=== PATIENT | male | born 1965 | race Caucasian/White ===

== ENCOUNTER 2019-10-22 08:10 | Inpatient (IN) | payer MEDICARE, OTHER ==
[2019-10-22] VITALS (16 sets, daily range): BP systolic 119–185; BP diastolic 60–104
[~2019-10-22] VITALS: Ht 180.3 cm; Wt 103.1 kg
[2019-10-22] MEDS ORDERED: ATROPINE 0.5 MG/5 ML DISP.SYRINGE. ONE (08:23)
[2019-10-22] MEDS ORDERED: TIROFIBAN 5MG -0.9% NS 100 ML IV ONE ×2 (08:28→08:35)
[2019-10-22] MEDS ORDERED: VERAPAMIL 5 MG/2 ML VIAL. IART ONE (08:30)
[2019-10-22] MEDS ORDERED: HEPARIN for IV BOLUS 10,000 UNIT/10 ML VIAL. IV ONE (08:30)
[2019-10-22] MEDS ORDERED: IODIXANOL 320 MG/ML 100 ML VIAL. IART ONE (08:30)
[2019-10-22] MEDS ORDERED: fentaNYL PF VIAL 100 MCG/2 ML VIAL IV ONE (08:30)
[2019-10-22] MEDS ORDERED: LIDOCAINE 1% PF 2 ML VIAL. INJ ONE (08:30)
[2019-10-22] MEDS ORDERED: NITROGLYCERIN 200 MCG/2 ML SYRINGE FOR CATH/VASC LAB. IART ONE ×2 (08:30→09:00)
[2019-10-22] MEDS ORDERED: HEPARIN for IV BOLUS 10,000 UNIT/10 ML VIAL. IART ONE (08:30)
[2019-10-22] MEDS ORDERED: MIDAZOLAM HCL/PF 2 MG/2 ML VIAL. IV ONE (08:30)
[2019-10-22] MEDS: TIROFIBAN 5MG -0.9% NS 100 ML IV PRN ×3 (08:40→20:59)
[2019-10-22] MEDS ORDERED: PRASUGREL 10 MG TABLET. ONE (09:05)
[2019-10-22] MEDS ORDERED: PRASUGREL 10 MG TABLET. PO ONE (09:15)
--- NOTE | 2019-10-22 09:44 | CARD ---
MR#: [id number] Date of Study: 10/22/2019 Ordering Physician: MIKE PITT, Referring Physician: MIKE PITT, Tech: RT Chandni (Mukul) MALVIN APPROVED REPORT Technologist: RT Chandni (R) MALVIN Nurse: SAMI AGUILA RN Procedure(s) performed: FLOURO TIME 9.9 MINUTES DOSE 268.47 Gycm2 CONTRAST 112 CC'S MODERATE SEDATION 45 MINUTES LHC, Coronary angiography, PCI of the RCA HISTORY The patient is a 54 year-old male with a history of : diabetes mellitus with treatment, tobacco histo ry() , hypertension. INDICATION The indication(s) include : STEMI . Heart Failure Heart Failure: Yes If Yes, Newly Diagnosed: Yes If Yes, HF Type: Diastolic If Yes, NYHA Class: Class III PROCEDURE NARRATIVE Clinical information: 54 y.o man who presents to the hospital in the setting of inferior STEMI. Informed consent: Verbal emergency informed consent was obtained from the patient after adequate discussion of the risk s and benefits of the procedure. Procedure details: ACCESS: The right wrist was prepped and draped in usual sterile fashion. Under 1% lidocaine local anesthesia a 6 [place] Terumo sheath was placed in the right radial artery via the Seldinger technique. DIAGNOSTIC ANGIOGRAPHY: Right and left coronary arteries were engaged with a 6 [place] Citizen TIG catheter. Diagnostic angiography i n multiple views were obtained. A pullback was performed with a TIG catheter and LVEDP was measured. All catheters were exchanged over J-tip guidewire. FINDINGS: ======= Aorta: 150/100 LVEDP: 18 mmHg Left ventriculogram: Deferred. Coronary angiography: LM: Large caliber vessel with a distal 20% stenosis. LAD: Large caliber vessel with with a proximal 80% stenosis. D1: Small caliber vessel with moderate diffuse disease. LCX: Moderate caliber non-dominant vessel with mild luminal irregularities OM1: Moderate caliber vessel with a proximal 90% stenosis. RCA: Large caliber dominant vessel with a proximal 100% occlusion. RPDA: Moderate caliber vessel with mild luminal irregularities. INTERVENTIONAL TECHNIQUE: Heparin and tirofiban were used for anticoagulation. Through a 6 [place] Citizen JR4 guide catheter a pro-mariam er wire was used to traverse the proximal and mid RCA occlusion. Balloon angioplasty was performed w ith a 2.5 x 12 and 3.0 x 25 mm balloons. The proximal to mid RCA were stented in overlapping fashion using resolute 3.5 x 38 and 3.5 x 26 drug-eluting stents. The stents were then postdilated to 3.75 mm noncompliant balloon at nominal pressures. Final angiography demonstrated LUISA-3 flow and no evid ence of guide or wire related complications. The patient received Prasugrel at case completion. CLOSURE: At case completion the right radial sheath was removed and a Terumo radial band was applied with 11 m L of air. Hemostasis was achieved. COMPLICATIONS: No acute complications noted LUISA Flow LUISA Flow (Pre-Intervention): LUISA-0 LUISA Flow (Post-Intervention): LUISA-3 COMMENTS RCA Conclusion 1. Acute inferior STEMI s/p PCI to the proximal and mid RCA with overlapping Resolute ALEC 3.5/38 and 3.5/26, postdilated with a 3.75mm NC balloon. 2. Mildly elevated LVEDP at 18 mm Hg. 3. Three vessel coronary disease. Recommendations ASA 81mg daily Prasugrel 10mg daily Staged PCI of the LAD and LCx in 24 to 48 hours. Signed by : Mike Pitt, Electronically Approved : 10/22/2019 09:43:52
--- NOTE | 2019-10-22 10:06 | PDOC2 ---
CARDIOLOGY CONSULT NOTE DATE OF SERVICE: DATE: 10/22/19 TIME: 10:04 CHIEF COMPLAINT: Chest pain HPI: 54-year-old man presented to an outside facility with stuttering chest pain since 4 AM this morning. Initial EKG revealed inferior ST elevations and he was promptly transferred to [facility] for expedited cardiac catheterization. At baseline the patient is mostly sedentary denies any other recent issues. PMHX: Diabetes Hypertension Tobacco abuse SOCHX: No illicit drug use. He is retired. FAMHX: Noncontributory CURRENT MEDS: Current Medications Medications (Trade) Dose Ordered Sig/Bernabe Route PRN Reason Start Time Stop Time Status Last Admin Dose Admin Nitroglycerin (Nitroglycerin) 200 mcg 1X ONCE IART 10/22/19 08:30 10/22/19 08:34 DC 10/22/19 08:30 Verapamil HCl (Verapamil) 2.5 mg 1X ONCE IART 10/22/19 08:30 10/22/19 08:34 DC 10/22/19 08:30 Heparin Sodium (Porcine) (Heparin Sodium) 2,500 unit 1X ONCE IART 10/22/19 08:30 10/22/19 08:34 DC 10/22/19 08:30 Heparin Sodium/ Sodium Chloride (HEPARIN for ARTERIAL LINE FLUSH) 1,000 unit 1X ONCE IART 10/22/19 08:30 10/22/19 08:34 DC 10/22/19 08:30 Heparin Sodium/ Sodium Chloride (HEPARIN for ARTERIAL LINE FLUSH) 1,000 unit 1X ONCE IART 10/22/19 08:30 10/22/19 08:34 DC 10/22/19 08:30 Midazolam HCl (Versed) 2 mg 1X ONCE IV 10/22/19 08:30 10/22/19 08:34 DC 10/22/19 08:30 Fentanyl Citrate (Fentanyl 2ml Vial) 100 mcg 1X ONCE IV 10/22/19 08:30 10/22/19 08:34 DC 10/22/19 08:30 Iodixanol (Visipaque 320) 100 ml 1X ONCE IART 10/22/19 08:30 10/22/19 08:34 DC 10/22/19 08:30 Heparin Sodium (Porcine) (Heparin Sodium) 4,000 unit 1X ONCE IV 10/22/19 08:30 10/22/19 08:34 DC 10/22/19 08:30 Lidocaine HCl (Xylocaine-Mpf 1% 2ml Vial) 2 ml 1X ONCE INJ 10/22/19 08:30 10/22/19 08:34 DC 10/22/19 08:30 Nitroglycerin (Nitroglycerin) 200 mcg 1X ONCE IART 10/22/19 09:00 10/22/19 09:01 DC 10/22/19 09:00 Tirofiban/Sodium Chloride 100 ml @ 0 mls/hr CONT PRN IV PER PROTOCOL 10/22/19 09:00 10/23/19 02:59 10/22/19 08:40 Prasugrel (Effient) 60 mg 1X ONCE PO 10/22/19 09:15 10/22/19 09:19 DC 10/22/19 09:08 ALLERGIES: Allergies Coded Allergies Type Severity Reaction Last Updated Verified No Known Drug Allergies 10/22/19 No ROS: Negative for 10-14 systems reviewed unless otherwise mentioned above in HPI PHYSICAL EXAM: Vital Signs/I&O: Vital Signs Date Time Temp Pulse Resp B/P (MAP) Pulse Ox O2 Delivery O2 Flow Rate FiO2 10/22/19 09:15 56 10 100 Room Air 10/22/19 08:30 2.0 Physical Exam: The patient appeared well nourished and normally developed. Head exam is unremarkable. No scleral icterus or corneal arcus noted. Neck is without jugular venous distension, thyromegaly, or carotid bruits. Carotid upstrokes are brisk bilaterally. Lungs are clear to auscultation and percussion. Cardiac exam reveals the PMI to be normally sized and situated. Rhythm is re gular. First and second heart sounds normal. No murmurs, rubs or gallops. Abdominal exam reveals normal bowel sounds, no masses, no organomegaly and no aortic enlargement. Extremities are nonedematous and both femoral and pedal pulses are normal. Msk: No traumua Neuro: No focal deficits DIAGNOSTIC TESTING: Inferior ST elevations of 3 mm on EKG Creatinine, hemoglobin and platelets within normal limits ASSESSMENT: 1. Acute inferior STEMI status post PCI to the RCA 2. Three-vessel coronary disease 3. Type 2 diabetes 4. Hypertension 5. Dyslipidemia 6. Tobacco abuse PLAN: 1. Patient underwent successful primary PCI of the RCA. Continue aspirin, Prasugrel. Continue tirofiban infusion for the next 12 to 18 hours. We will plan for staged PCI of his LAD and left circumflex disease in the next 24 to 48 hours. 2. Start statin therapy. Check lipids. 3. Referral to cardiac rehab MIKE PITT MD Oct 22, 2019 10:06
--- NOTE | 2019-10-22 23:37 | NUR ---
0915 Adm from cath lb post PCI tommie x2 to RCA - 9.10 pain midsternal w radiation/L arm/SOA and nausea creating a restless night w continued pain this am. RCA 100% occlusion w further disease in LAD/Circ=80% ineach. Repeat procedure for tenatve- am. Currently pain free. Dr Palomino in later w strong reinforced discussion on NO SMOKing. Other risk factors covered. Extremely "stoic".Aggrastat to run til 0230 10/22 Continued on flow sheets
[2019-10-23] VITALS (11 sets, daily range): BP systolic 110–162; BP diastolic 41–104
[2019-10-23] MEDS: hydrALAZINE 20 MG/ML VIAL. IVP PRN ×2 (01:47→08:43)
--- NOTE | 2019-10-23 07:22 | NUR ---
Patient in chair, has taken BP cuff off. Denies chest pain.
[2019-10-23] MEDS ORDERED: CELE200C PO (07:54)
[2019-10-23] MEDS ORDERED: GABA300C18 PO (07:57)
[2019-10-23] MEDS ORDERED: METF10007 PO (07:57)
[2019-10-23] MEDS ORDERED: DULO60CA6 PO (07:57)
[2019-10-23] MEDS ORDERED: OLME40TA12 PO (07:58)
[2019-10-23] MEDS: IV NORMAL SALINE 1000ML BAG 1,000 ML IV SCH ×2 (08:37→13:32)
[2019-10-23] MEDS: PRASUGREL 10 MG TABLET. PO SCH (11:37)
[2019-10-23] MEDS: ASPIRIN ENTERIC COATED 81 MG TABLET.DR. PO SCH (11:37)
--- NOTE | 2019-10-23 12:14 | PDOC ---
RICH HARPER CULTURAL ANTHROPOLOGY PROFESSOR 10/23/19 1214: CARDIO Progress Notes Date and Time Date of Service 10/23/2019 Time of Evaluation 1110 Subjective Subjective: No Chest Pain, No shortness of breath, No Palpitations Vitals Vitals Vital Signs Date Time Temp Pulse Resp B/P (MAP) Pulse Ox O2 Delivery O2 Flow Rate FiO2 10/23/19 10:55 98.0 67 16 110/59 (76) 96 Room Air 98.0 10/23/19 03:46 12.0 Weight Weight [ ] Input and Output Intake and Output Intake and Output 10/23/19 07:00 Intake Total 2665 ml Output Total 4375 ml Balance -1710 ml Intake Oral 1365 ml IV Total 200 ml Blood Product IV Normal Saline Flush 1100 ml Output Urine Total 4375 ml Stool Total 0 ml Laboratory Labs Laboratory Tests Test 10/23/19 07:26 Glucose (Fingerstick) 156 mg/dL (70-99) Physical Exam HEENT: Neck Supple W Full Motion Chest: Symmetric LUNGS: Clear to Auscultation Heart: S1S2, RRR (SR no ectopies) Abdomen: Soft N/T, Other (obese) Extremities: No Edema, No Calf Tenderness Neurology: alert, oriented, follow commands Other Exams right radial arteriotomy site intact no swelling-,- no erythema, neurovascular status to right hand intact Assessment Assessment 1. Acute inferior STEMI: culprit RCA S/P PCI/ALEC x2 2. CAD/3VD; Staged PCI tomorrow on LCx and LAD 3. DM2: reported recent A1C at 7.5 4. Hypertension: controlled 5. Dyslipidemia 6. Tobaccoism 7. Obesity Recommendations 1. BMP, Mg, TSH, lipids and TTE 2. ASA/effient 3. Start lipitor and metoprolol 4. Consult HIMS for DM management. Will place on SS for now. 5. Cardiac rehab, Smoking cessation, dietitian consult Justicifation of Admission Dx: Justifications for Admission: Justification of Admission Dx: Yes MIKE PITT MD 10/24/19 0742: CARDIO Progress Notes Plan Plan Late entry for 10/23/2019. Pt. seen and examined. Agree with above. Plan for staged PCI on 10/24/2019 for the LAD and LCx stenosis. KRISTINEERINNEIDAJAKE King CULTURAL ANTHROPOLOGY PROFESSOR Oct 23, 2019 12:14 MIKE PITT MD Oct 24, 2019 07:42
[2019-10-23] MEDS ORDERED: DEXTROSE 50% 25 GM / 50ML DISP.SYRIN. IV PRN (12:15)
[2019-10-23 12:31] LABS: BILIRUBIN,URINE NEGATIVE (NEG); CLARITY,URINE CLEAR; COLOR,URINE YELLOW; NITRITE,URINE NEGATIVE (NEG); PH,URINE 7.5 (<5.0-8.0); PROTEIN,URINE NEGATIVE (NEG-TRACE); UROBILINOGEN,URINE 0.2 mg/dL (0.2 mg/dL)
[2019-10-23 12:47] LABS: SQUAMOUS EPITHELIAL CELL,UR OCC /LPF
[2019-10-23 12:48] LABS: BACTERIA,URINE 0 /HPF (0-FEW); RBC,URINE 0 /HPF (0-2); WBC,URINE 0 /HPF (0-4)
[2019-10-23 13:10] LABS: HEMATOCRIT 44.6 % (39.0-53.0); HEMOGLOBIN 15.6 g/dL (13.0-17.5); RED BLOOD COUNT 4.75 x10^6/uL (4.30-5.70); RED CELL DISTRIBUTION WIDTH 12.9 % (11.5-14.5); WHITE BLOOD COUNT 13.8 x10^3/uL (4.0-11.0)
[2019-10-23 13:31] LABS: CALCIUM 9.1 mg/dL (8.5-10.1); CREATININE 0.9 mg/dL (0.7-1.3); GFR 87.3; MAGNESIUM 1.7 mg/dL (1.8-2.4); POTASSIUM 4.6 mmol/L (3.5-5.1)
[2019-10-23] MEDS: METOPROLOL TART IMMED RELEASE 25 MG TABLET. PO SCH ×2 (13:32→22:01)
[2019-10-23] MEDS ORDERED: MAGNESIUM SULFATE 2GM 50 ML IV ONE (15:00)
--- NOTE | 2019-10-23 15:36 | NUR ---
Patient transferred to CVC room 208 - report given to Hilda
--- NOTE | 2019-10-23 15:37 | NUR ---
Patient transferred from ICU around 1530 via . Patient currently in shower.
[2019-10-23] MEDS: INSULIN LISPRO 300 UNITS/3 ML VIAL. SQ SCH (17:00)
--- NOTE | 2019-10-23 17:19 | CARD ---
MR#: [id number] Date of Study: 10/23/2019 Ordering Physician: RICH HARPER, Referring Physician: RICH HARPER Tech: Elba Anguiano [facility] APPROVED REPORT EXAM: Two-dimensional and M-mode echocardiogram with Doppler and color Doppler. Other Information Quality : Fair Technically limited study due to body habitus. INDICATION STEMI 2D DIMENSIONS Left Atrium(2D)3.5 (1.6-4.0cm)IVSd1.1 (0.7-1.1cm) Aortic Root(2D)3.0 (2.0-3.7cm)LVDd5.6 (3.9-5.9cm) LVOT Diameter2.2 (1.8-2.4cm)PWd1.1 (0.7-1.1cm) LVDs3.5 (2.5-4.0cm)FS (%) 36.4 % SV99.5 mlLVEF(%)60.0 (>50%) Aortic Valve AoV Peak Richy.208.8cm/sAoV VTI32.1cm AO Peak GR.17.4mmHgLVOT VTI 24.55cm AO Mean GR.9mmHgAVA (VTI)2.99cm2 Mitral Valve MV E Ohqueptl73.0cm/sMV DECEL [id number] MV A Cvhtrmmz74.8cm/sE/A Ratio1.2 TDI Lateral E' P. V2.64cm/sMedial E' P. V6.95cm/s E/Lateral E'29.2E/Medial E'11.1 Pulmonary Vein S1 Oeahdbda81.5cm/sS2 Jgzctzgq82.18cm/s D2 Abhbgmys12.2cm/s LEFT VENTRICLE The left ventricle is normal size. There is normal left ventricular wall thickness. The left ventricu lar systolic function is normal and the ejection fraction is within normal range. The Ejection Fracti on is 55-60%. The basal to mid inferior wall is severely hypokinetic. Transmitral Doppler flow patter n is Grade I-abnormal relaxation pattern. RIGHT VENTRICLE The right ventricle is normal size. The right ventricular systolic function is normal. ATRIA The left atrium size is normal. The right atrium size is normal. The interatrial septum is intact wit h no evidence for an atrial septal defect or patent foramen ovale as noted on 2-D or Doppler imaging. AORTIC VALVE The aortic valve is not well visualized. Doppler and Color Flow revealed no significant aortic regurg itation. There is no significant aortic valvular stenosis. MITRAL VALVE The mitral valve is normal in structure and function. There is no evidence of mitral valve prolapse. There is no mitral valve stenosis. Doppler and Color Flow revealed no mitral valve regurgitation note d. TRICUSPID VALVE The tricuspid valve is normal in structure and function. Doppler and Color Flow revealed no tricuspid valve regurgitation noted. There is no tricuspid valve stenosis. PULMONIC VALVE The pulmonic valve is not well visualized. Doppler and Color Flow revealed no pulmonic valvular regur gitation. There is no pulmonic valvular stenosis. GREAT VESSELS The aortic root is normal in size. The ascending aorta is mildly dilated at 3.5 cm. The IVC is normal in size and collapses >50% with inspiration. PERICARDIAL EFFUSION There is no evidence of significant pericardial effusion. Critical Notification Critical Value: No <Conclusion> The left ventricular systolic function is normal and the ejection fraction is within normal range. Th e Ejection Fraction is 55-60%. The basal to mid inferior wall is severely hypokinetic. The ascending aorta is mildly dilated at 3.5 cm. Signed by : Kingsley Palomino, Electronically Approved : 10/23/2019 17:18:48
--- NOTE | 2019-10-23 19:40 | NUR ---
assesed pt, his right hand is dry w a transparent. pule present. denies pain. arm board is not present he said days told him he didnt need it. lcrn
[2019-10-24] VITALS (17 sets, daily range): BP systolic 127–201; BP diastolic 67–109
[2019-10-24] MEDS: IV NORMAL SALINE 1000ML BAG 1,000 ML IV SCH (06:35)
[2019-10-24] MEDS ORDERED: LIDOCAINE 1% PF 2 ML VIAL. ONE (07:38)
[2019-10-24] MEDS ORDERED: IODIXANOL 320 MG/ML 100 ML VIAL. ONE ×2 (07:38→09:10)
[2019-10-24] MEDS: INSULIN LISPRO 300 UNITS/3 ML VIAL. SQ SCH ×3 (08:00→17:00)
[2019-10-24] MEDS: PRASUGREL 10 MG TABLET. PO SCH (08:23)
[2019-10-24] MEDS: ASPIRIN ENTERIC COATED 81 MG TABLET.DR. PO SCH (08:23)
[2019-10-24] MEDS: METOPROLOL TART IMMED RELEASE 25 MG TABLET. PO SCH ×2 (08:23→20:56)
[2019-10-24] MEDS ORDERED: HEPARIN for IV BOLUS 10,000 UNIT/10 ML VIAL. ONE (08:37)
[2019-10-24] MEDS ORDERED: MIDAZOLAM HCL/PF 2 MG/2 ML VIAL. ONE (08:37)
[2019-10-24] MEDS ORDERED: VERAPAMIL 5 MG/2 ML VIAL. ONE (08:37)
[2019-10-24] MEDS ORDERED: fentaNYL PF VIAL 100 MCG/2 ML VIAL ONE (08:37)
[2019-10-24] MEDS ORDERED: NITROGLYCERIN 200 MCG/2 ML SYRINGE FOR CATH/VASC LAB. ONE ×2 (08:38→09:42)
[2019-10-24] MEDS ORDERED: HEPARIN for IV BOLUS 10,000 UNIT/10 ML VIAL. IART ONE (09:15)
[2019-10-24] MEDS ORDERED: MIDAZOLAM HCL/PF 2 MG/2 ML VIAL. IV ONE (09:15)
[2019-10-24] MEDS ORDERED: IODIXANOL 320 MG/ML 100 ML VIAL. IART ONE (09:15)
[2019-10-24] MEDS ORDERED: LIDOCAINE 1% PF 2 ML VIAL. INJ ONE (09:15)
[2019-10-24] MEDS ORDERED: VERAPAMIL 5 MG/2 ML VIAL. IART ONE (09:15)
[2019-10-24] MEDS ORDERED: HEPARIN for IV BOLUS 10,000 UNIT/10 ML VIAL. IV ONE (09:15)
[2019-10-24] MEDS ORDERED: fentaNYL PF VIAL 100 MCG/2 ML VIAL IV ONE (09:15)
[2019-10-24] MEDS ORDERED: NITROGLYCERIN 200 MCG/2 ML SYRINGE FOR CATH/VASC LAB. IART ONE (09:15)
[2019-10-24] MEDS ORDERED: NITROGLYCERIN 200 MCG/2 ML SYRINGE FOR CATH/VASC LAB. ICAR ONE (09:30)
[2019-10-24] MEDS ORDERED: CONTRAST GIVEN. MC PRN (09:30)
[2019-10-24] MEDS ORDERED: PRASUGREL 10 MG TABLET. ONE (09:44)
[2019-10-24] MEDS ORDERED: PRASUGREL 10 MG TABLET. PO ONE (09:45)
[2019-10-24] MEDS: hydrALAZINE 20 MG/ML VIAL. IVP PRN (11:43)
--- NOTE | 2019-10-24 11:46 | CARD ---
MR#: [id number] Date of Study: 10/24/2019 Ordering Physician: MIKE PALOMINO, Referring Physician: MIKE PALOMINO, Tech: DAILY OCONNELL RTR APPROVED REPORT Technologist: DAILY OCONNELL RTR Nurse: Tita Barlow R.N. Procedure(s) performed: MODERATE SEDATION TIME: 63 MINS FLUORO TIME: 15.9 MIN DOSE: 193 GYCM2 CONTRAST: 149CC VISI Complex PCI of the LAD and LCx for CAD HISTORY The patient is a 54 year-old male with a history of : diabetes mellitus with treatment, coronary kerri ry disease, tobacco history() , hypertension, dyslipidemia. INDICATION The indication(s) include : STEMI , dyspnea. [facility] Clinical Frailty Scale [facility] Clinical Frailty Scale: Managing Well Heart Failure Heart Failure: Yes If Yes, Newly Diagnosed: Yes If Yes, HF Type: Diastolic If Yes, NYHA Class: Class III PROCEDURE NARRATIVE Clinical indication: Staged PCI of the LAD and circumflex in the setting of a initial presentation wi th inferior STEMI Informed consent was obtained for the patient and family. Procedure details: The right wrist was prepped and draped in usual sterile fashion. A 6 [place]isian introducer sheath was pl aced in the right radial artery via the Seldinger technique under 2% lidocaine local anesthesia. Nex t, a JR4 catheter was used to perform diagnostic angiography of the RCA. Next, a EBU 3.[address] was advanced and the left main was engaged. Repeat angiography was performed. Findings: Left main has no significant disease LAD has a proximal 80% calcified stenosis Left circumflex is unremarkable The second obtuse marginal has a proximal 80% stenosis The RCA has patent proximal and mid stents and is otherwise unremarkable Interventional technique: Heparin was used for anticoagulation. The patient was previously already on aspirin and Effient ther apy. Through a EBU 3.5 guide catheter a pro-water wire was placed in the distal LAD. Balloon angiop lasty was performed of the LAD with a 2.5 mm balloon. The LAD was then stented with a 3.0 x 26 mm ba lloon which was postdilated with a 3.5 and 3.75 mm noncompliant balloons. Final angiography revealed excellent stent expansion with LUISA-3 flow in the vessel. Attention was then turned to the left circumflex. The pro-water wire was then placed in the distal l eft circumflex. Due to significant tortuosity a second wire was then used to engage the obtuse [place] n[place]. This was also angioplastied with a 2.5 mm balloon and stented with a 3.0 x 18 mm drug-eluting s tent at 14 joseph. Intracoronary nitroglycerin was administered. Final angiography demonstrated excell ent stent expansion with LUISA-3 flow and no evidence of guide or wire related complications. LUISA Flow LUISA Flow (Pre-Intervention): LUISA-3 LUISA Flow (Post-Intervention): LUISA-3 LUISA Flow LUISA Flow (Pre-Intervention): LUISA-3 LUISA Flow (Post-Intervention): LUISA-3 Conclusion 1. Three-vessel coronary artery disease 2. Successful PCI of the LAD with implantation of a 3.0 x 26 mm resolute drug-eluting stent, postdil ated with a 3.75 mm noncompliant balloon in the proximal half 3. Successful PCI of the first obtuse marginal with implantation of a 3.0 x 18 mm resolute drug-elut ing stent. Recommendations 1. Aspirin 81 g daily 2. Continue Prasugrel 10 mg daily 3. Continue risk factor modification. 4. Cardiac rehab referral. Signed by : Mike Palomino, Electronically Approved : 10/24/2019 11:45:29
--- NOTE | 2019-10-24 12:03 | NUR ---
SS following for discharge planning. SS reviewed pt chart and discussed with pt RN. Pt is from home with spouse and is currently on room air. Pt had heart cath today. Possible discharge to home tomorrow. SS will continue to follow for discharge planning.
--- NOTE | 2019-10-24 12:37 | HP ---
ADMIT DATE: CHIEF COMPLAINT: Chest pain. HISTORY OF PRESENT ILLNESS: The patient is a pleasant 54-year-old male who initially went to [facility] with chest pain. He had ST elevations. He was transferred to our facility where he underwent cardiac catheterization. Yesterday, he got 2 stents. Cardiology called me yesterday and asked if we take the patient on his primary, we have. It should be noted that he also went for another cardiac catheterization this morning, got 2 more stents and now he has 4 new stents. PAST MEDICAL HISTORY: Diabetes, hypertension, tobacco abuse. ALLERGIES: None. FAMILY HISTORY: Diabetes. SOCIAL HISTORY: Does not drink, smoke or take drugs. He is retired as a parole officer at the correction. He is . MEDICATIONS: Reviewed, please refer to the MRAD. REVIEW OF SYSTEMS: GENERAL: No history of weight change, weakness or fevers. SKIN: No bruising, hair changes or rashes. EYES: No blurred, double or loss of vision. NOSE AND THROAT: No history of nosebleeds, hoarseness or sore throat. HEART: No history of palpitations, chest pain or shortness of breath on exertion. LUNGS: Denies cough, hemoptysis, wheezing or shortness of breath. GASTROINTESTINAL: Denies changes in appetite, nausea, vomiting, diarrhea or constipation. GENITOURINARY: No history of frequency, urgency, hesitancy or nocturia. NEUROLOGIC: Denies history of numbness, tingling, tremor or weakness. PSYCHIATRIC: No history of panic, anxiety or depression. ENDOCRINE: No history of heat or cold intolerance, polyuria or polydipsia. EXTREMITIES: Denies muscle weakness, joint pain, pain on walking or stiffness. PHYSICAL EXAMINATION: VITALS: Within normal limits and are stable. GENERAL: No apparent distress. Alert and oriented. HEENT: Normal cephalic atraumatic, external auditory canals are patent EYES: Extraocular muscles are intact, pupils are equally round and reactive to light and accommodation MUSCULOSKELETAL: Well developed, well nourished, good range of motion ENDOCRINE: No thyromegaly was palpated LYMPHATICS: No cervical chain or axillary nodes were noted HEMATOPOIETIC: No bruising NECK: Supple, no JVD, no thyromegaly was noted. LUNGS: Clear to auscultation in all lung [place] without rhonchi or wheezing. HEART: RRR, S1, S2 present. Peripheral pulses intact, no obvious murmurs were noted. ABDOMEN: Soft, nontender. Positive bowel sounds no organomegaly, normal bowel sounds. EXTREMITIES: He has a clean, dry and intact dressings on his wrist. NEUROLOGIC: Normal speech, normal tone. A & O x3, moves all extremities, no obvious focal deficits. PSYCHIATRIC: Normal affect, normal mood. Stable. SKIN: No ulcerations or rashes, good skin turgor, no jaundice. VASCULAR: Good capillary refill, neurovascular bundle appears to be intact. ASSESSMENT AND PLAN: Resolving chest pain with new diagnosis of coronary artery disease with 4 new stents. The patient has been admitted to the lab analyst twice. He is doing well. We are going to observe him overnight. He will most likely need statins, SUE inhibitors, beta blockers and antiplatelet drugs. Thank you very much for allowing us to participate in the care of this nice gentleman. SHASHANK DOVER DO DR: CINTHIA/sourav JOB#: [id number] / [id number]
[2019-10-25 03:00] VITALS: BP 135/68
[2019-10-25 07:00] VITALS: BP 124/67
[2019-10-25] MEDS: INSULIN LISPRO 300 UNITS/3 ML VIAL. SQ SCH (08:00)
[2019-10-25 08:17] VITALS: BP 124/67
[2019-10-25] MEDS: PRASUGREL 10 MG TABLET. PO SCH (08:17)
[2019-10-25] MEDS: ASPIRIN ENTERIC COATED 81 MG TABLET.DR. PO SCH (08:17)
[2019-10-25] MEDS: METOPROLOL TART IMMED RELEASE 25 MG TABLET. PO SCH (08:17)
[2019-10-25] MEDS ORDERED: ATORVASTATIN CALCIUM 40 MG TABLET. PO SCH (08:30)
[2019-10-25] MEDS ORDERED: METO25TA4 PO (08:52)
[2019-10-25] MEDS ORDERED: PRAS10TA9 PO (08:55)
[2019-10-25] MEDS ORDERED: ATOR40TA59 PO (08:56)
--- NOTE | 2019-10-25 09:49 | NUR ---
Discharge Note: STEPHANIE GIL Discharge instructions and discharge home medications reviewed with Patient and a copy given. All questions have been answered and understanding verbalized. The following instructions and handouts were given: post cath, cardiac rehab, new medications, worsening symptoms, stent cards. Discontinued lines and drains: no IV to discontinue. Patient discharged to home with spouse via ambulation.
--- NOTE | 2019-10-25 11:38 | DS ---
DATE OF DISCHARGE: 10/25/2019 ADMISSION DIAGNOSIS: Acute myocardial infarction. DISCHARGE DIAGNOSES: Resolving acute myocardial infarction with 4 new cardiac stents placed. CONSULTS: Cardiology. PROCEDURES: Cardiac catheterization x 2 with a total of 4 new stents placed. HOSPITAL COURSE: The patient is a pleasant 54-year-old male who presented with chest pain. He was admitted. He was taken to the cytology laboratory manager Two stents were placed. The next day they took him back to the cytology laboratory manager and two more stents were placed. We certainly agree and appreciate Cardiology's rapid intervention. Today, I saw and examined him, he is at his baseline and he wants to go home. We plan to discharge with close outpatient followup. DISPOSITION: Home. ACTIVITY: As tolerated. DIET: Cardiac. MEDICATIONS: Please see MRAD. TOTAL TIME: 32 minutes. SHASHANK DOVER DO DR: CINTHIA/sourav JOB#: [id number] / [id number]
== END 2019-10-25 09:59 | disposition home or self-care (01) | DRG 246 ==
LOC: 1 WEST ICU 08:10 → 2 NORTH 10-23 15:17
PROVIDERS: ADMIT Internal Medicine; ATTEND Internal Medicine
PROC: 027035Z Dilation of Coronary Artery, One Artery with Two Drug-eluting Intraluminal Devices, Percutaneous Approach (ICD-10-PCS; principal; 2019-10-22)
PROC: 4A023N7 Measurement of Cardiac Sampling and Pressure, Left Heart, Percutaneous Approach (ICD-10-PCS; 2019-10-22)
PROC: B2111ZZ Fluoroscopy of Multiple Coronary Arteries using Low Osmolar Contrast (ICD-10-PCS; 2019-10-22)
PROC: 027135Z Dilation of Coronary Artery, Two Arteries with Two Drug-eluting Intraluminal Devices, Percutaneous Approach (ICD-10-PCS; 2019-10-24)
DX: I21.19 ST elevation (STEMI) myocardial infarction involving other coronary artery of inferior wall (principal); R65.11 Systemic inflammatory response syndrome (SIRS) of non-infectious origin with acute organ dysfunction; I10 Essential (primary) hypertension; E11.9 Type 2 diabetes mellitus without complications; I25.10 Atherosclerotic heart disease of native coronary artery without angina pectoris; F17.200 Nicotine dependence, unspecified, uncomplicated; E78.5 Hyperlipidemia, unspecified; E66.9 Obesity, unspecified; Z68.31 Body mass index [BMI] 31.0-31.9, adult; Z83.3 Family history of diabetes mellitus; Z71.6 Tobacco abuse counseling
CPT/HCPCS: 36415; 80048; 80061; 81001; 82962; 83735; 84443; 85027; 85347; 92928; 92941; 93306; 93454; 99152; 99153; C1725; C1769; C1874; C1887; C1892; J0360; J1644; J1815; J2250; J3010; J3475; J3490; J7030; Q9967; G0378; J3246